=== PATIENT | male | born 1965 | race Caucasian/White ===

== ENCOUNTER 2021-08-16 21:58 | Inpatient (IN) | payer MEDICAID ==
[~2021-08-16] VITALS: Ht 167.6 cm; Wt 53.1 kg
--- NOTE | 2021-08-16 22:10 | NUR ---
[address] 78 [address] [employer] [address] C/O MULTIPLE FACE LACS ON FACE S/P SCRAPING BODY AND FACE ON STREET. GIVEN 5MG VERSED. PT ALERT AND ORIENTED X3. BROUGHT IN ON STRETCHER BUT IS AMBULATORY.
[2021-08-16 22:28] LABS: BASOPHILS % (AUTO) 0.3 % (0.0-2.0); EOSINOPHILS % (AUTO) 0.1 % (0.0-6.0); HEMATOCRIT 34 % (39-51); HEMOGLOBIN 11.2 g/dL (13.5-17.5); LYMPHOCYTES # (AUTO) 0.3 K/uL (0.8-4.8); LYMPHOCYTES % (AUTO) 4.3 % (20.0-44.0); MEAN CORPUSCULAR HGB CONC 33 g/dl (31.0-36.0); MEAN CORPUSCULAR VOLUME 93 fL (80-96); MONOCYTES # (AUTO) 0.3 K/uL (0.1-1.30); MONOCYTES % (AUTO) 3.9 % (2.0-12.0); NEUTROPHILS # (AUTO) 7.3 K/uL (1.8-8.9); NEUTROPHILS % (AUTO) 91.4 % (43.0-81.0); PLATELET COUNT (AUTO) 311 K/uL (150-450); RED BLOOD CELL COUNT(AUTO) 3.72 MIL/uL (4.5-6.0)
[2021-08-16 22:41] LABS: BILIRUBIN,URINE SMALL (NEGATIVE); COLOR,URINE YELLOW (YELLOW); LEUKOCYTE ESTERASE ,URINE Negative (NEGATIVE); NITRITE, URINE Negative (NEGATIVE); PH,URINE 5.5 (5.0-8.0); PROTEIN,URINE 100 mg/dl (NEGATIVE); UGLUCOSE Negative (NEGATIVE); UROBILINOGEN,URINE 0.2 EU/dL (0.2)
[2021-08-16 22:44] LABS: BACTERIA,URINE Rare /HPF (None Seen); SQUAMOUS EPITHELIAL CELL,UR Few /HPF (None Seen); WBC,URINE NONE SEEN /HPF (0-3)
[2021-08-16 22:45] LABS: ALANINE AMINOTRANSFERASE 34 U/L (12-78); ALBUMIN 3.4 g/dL (3.4-5.0); ALCOHOL, BLOOD < 3 mg/dL (0-0); ALKALINE PHOSPHATASE 101 U/L (46-116); ASPARTATE AMINOTRANSFERASE 44 U/L (15-37); BILIRUBIN,DIRECT 0.3 mg/dL (0.0-0.2); BILIRUBIN,TOTAL 1.1 mg/dL (0.2-1.0); CALCIUM, SERUM 8.8 mg/dL (8.5-10.1); CARBON DIOXIDE 19 mmol/L (21-32); CHLORIDE 104 mmol/L (98-107); CREATININE 2.5 mg/dL (0.6-1.3); GLUCOSE 91 mg/dL (74-106); POTASSIUM 3.7 mmol/L (3.5-5.1); SODIUM SERUM 140 mmol/L (136-145); TOTAL PROTEIN, SERUM 7.4 g/dL (6.4-8.2); UREA NITROGEN, BLOOD 35 mg/dL (7-18)
[2021-08-16 22:47] LABS: ACETAMINOPHEN < 2 ug/ml (10-30)
[2021-08-16] MEDS ORDERED: TDAP [DIPH/PERTUSSIS/TET] 0.5 ML VIAL IM ONE ×2 (23:00→23:24)
[2021-08-16] MEDS ORDERED: IV NS 0.9% 1,000 ML BAG IV ONE (23:30)
[2021-08-17] VITALS (7 sets, daily range): BP systolic 58–133; BP diastolic 32–66
--- NOTE | 2021-08-17 00:08 | NUR ---
BROUGHT TO CT
--- NOTE | 2021-08-17 00:08 | NUR ---
PT IN CT
--- NOTE | 2021-08-17 00:26 | NUR ---
CALLED JEANNE TO HAVE IMAGES READ
[2021-08-17] MEDS ORDERED: IV NS 0.9% 1,000 ML BAG IV ONE ×2 (01:00→11:00)
[2021-08-17] MEDS ORDERED: PIPERACILLIN /TAZOBACTAM 3.375 G in IV D5W 50 ML IV ONE (01:00)
[2021-08-17] MEDS ORDERED: PIPERACILLIN /TAZOBACTAM 3.375 G VIAL IV ONE ×2 (01:01→07:38)
--- NOTE | 2021-08-17 01:06 | NUR ---
CALLED DR CERON AND LEFT A MESSAGE.
--- NOTE | 2021-08-17 01:21 | NUR ---
called magdiel, will fax cts to [facility] to look over
--- NOTE | 2021-08-17 01:26 | NUR ---
sent clinicals to [facility] [phone]
--- NOTE | 2021-08-17 01:32 | NUR ---
called Dr Tran, left a message
--- NOTE | 2021-08-17 01:47 | NUR ---
presented the case to [facility]. dang fax clinicals to Luiz [phone]
--- NOTE | 2021-08-17 01:49 | NUR ---
speaking with [facility]
--- NOTE | 2021-08-17 01:50 | NUR ---
faxed clinicals to [facility]
--- NOTE | 2021-08-17 01:51 | NUR ---
[place] trauma dr denied pt
--- NOTE | 2021-08-17 01:55 | NUR ---
called dr garsia and left a message
--- NOTE | 2021-08-17 01:57 | NUR ---
called [facility]. They will call back
--- NOTE | 2021-08-17 02:01 | NUR ---
called [facility]. [phone] dr ledbetter
--- NOTE | 2021-08-17 02:03 | NUR ---
[facility] emmanuel denied case
--- NOTE | 2021-08-17 02:36 | NUR ---
called dr garsia. left a message
--- NOTE | 2021-08-17 02:58 | NUR ---
pt accepted to [facility] er by Dr Mari. call report to [phone]
--- NOTE | 2021-08-17 03:02 | NUR ---
[facility] has no [facility] trans[facility] available
--- NOTE | 2021-08-17 03:05 | NUR ---
[facility] has no als transports available
--- NOTE | 2021-08-17 03:08 | NUR ---
[facility] has no als transports available until after noon
--- NOTE | 2021-08-17 03:10 | NUR ---
[facility] has no als transports available
--- NOTE | 2021-08-17 03:14 | NUR ---
[facility] ambulance has no als transports available
--- NOTE | 2021-08-17 03:17 | NUR ---
[facility] has no als transports available. call back after [phone]
--- NOTE | 2021-08-17 03:18 | NUR ---
[facility] has no als transports available
--- NOTE | 2021-08-17 03:19 | NUR ---
REPORT GIVEN TO BRYCE GU AT [facility]. WILL CALL THEM BACK WITH ETA
--- NOTE | 2021-08-17 03:25 | NUR ---
[facility] unable to take pt's insurance
--- NOTE | 2021-08-17 03:32 | NUR ---
called [facility], no answer
--- NOTE | 2021-08-17 03:33 | NUR ---
Called [facility], no answer
--- NOTE | 2021-08-17 03:34 | NUR ---
Called [facility], no answer
--- NOTE | 2021-08-17 03:56 | NUR ---
[employer] HERE TO TAKE FINGERPRINTS
--- NOTE | 2021-08-17 04:00 | NUR ---
verbal order of 1L ns
--- NOTE | 2021-08-17 04:13 | NUR ---
per officer [id number], call [phone], thornton dipper clock and watch hands when pt is transferred.
[2021-08-17] MEDS ORDERED: IV NS 0.9% 1,000 ML IV ONE ×2 (04:30→07:00)
--- NOTE | 2021-08-17 04:31 | NUR ---
Officer Aleksander called to inform that when pt is transported, SO needs to call the area field person in order for officers to accompany the pt during transport
--- NOTE | 2021-08-17 06:14 | NUR ---
CALLED [facility] AGAIN, NO ALS TRANSPORATION AVAILABLE
--- NOTE | 2021-08-17 06:16 | NUR ---
CALLED [facility] NO ALS TRANSPORT AVAILABLE
--- NOTE | 2021-08-17 06:18 | NUR ---
CALLED [facility] FOR ALS TRANSPORT, NONE AVAILABLE
--- NOTE | 2021-08-17 06:18 | NUR ---
CALLED [facility] AGAIN, UNABLE TO TRANSFER DUE TO INSURANCE
--- NOTE | 2021-08-17 06:18 | NUR ---
Chu zepeda in ED - 08/17/21 at 0618 by CORINNE CALLED [facility] AGAIN, UNABLE TO TRANSFER DUE TO INSURANCE
[2021-08-17] MEDS ORDERED: ONDANSETRON HCL/PF - ER 4 MG/2 ML VIAL IV ONE (07:00)
[2021-08-17] MEDS ORDERED: MORPHINE SULFATE INJ 2 MG/ML DISP.SYRIN IV ONE (07:00)
[2021-08-17] MEDS ORDERED: OLANZAPINE 10 MG VIAL IM ONE ×4 (07:01→08:00)
[2021-08-17] MEDS: PIPERACILLIN /TAZOBACTAM 3.375 G in IV D5W 50 ML IV SCH ×4 (07:43→23:38)
[2021-08-17] MEDS ORDERED: ONDANSETRON HCL/PF 4 MG/2 ML VIAL ONE (07:51)
--- NOTE | 2021-08-17 07:53 | NUR ---
CALLED [facility] FOR ALS TRANSPORT BUT FULLY BOOKED.
[2021-08-17 08:05] LABS: CALCIUM, SERUM 7.9 mg/dL (8.5-10.1); CREATININE 2.2 mg/dL (0.6-1.3); POTASSIUM 4.1 mmol/L (3.5-5.1)
[2021-08-17] MEDS ORDERED: DEXTROSE 50%-WATER 50 ML DISP.SYRIN ONE ×2 (08:10→09:08)
--- NOTE | 2021-08-17 08:18 | NUR ---
SPOKE WITH GERRY FROM [facility] ALS TRANSPORT AVAILABLE AT 11 PM.
[2021-08-17] MEDS ORDERED: DEXTROSE 50%-WATER 50 ML DISP.SYRIN IV ONE ×2 (08:30→09:30)
--- NOTE | 2021-08-17 08:38 | NUR ---
CALLED [facility] BUT NO ALS AVAILABLE
--- NOTE | 2021-08-17 08:43 | NUR ---
[facility] HAS NO ALS SERVICE
--- NOTE | 2021-08-17 08:47 | NUR ---
called Dr. Tran for consult and speaking to Dr. Smith.
--- NOTE | 2021-08-17 09:04 | NUR ---
MOVE SHEET SUBMITTED AND CALLED FOR ICU BED.
[2021-08-17] MEDS ORDERED: IV D5/0.45 NACL 500 ML IV ONE (09:30)
[2021-08-17] MEDS ORDERED: IV D5/0.45 NACL 1,000 ML IV SCH (09:30)
--- NOTE | 2021-08-17 09:38 | NUR ---
Dr. Tran at bedside for eval.
--- NOTE | 2021-08-17 09:48 | NUR ---
DR. DE LUNA ACCEPTED PATIENT.
[2021-08-17] MEDS ORDERED: IV NS 0.9% 1,000 ML IV PRN (10:30)
[2021-08-17 10:33] LABS: BASOPHILS % (AUTO) 0.2 % (0.0-2.0); EOSINOPHILS % (AUTO) 0.3 % (0.0-6.0); HEMATOCRIT 36 % (39-51); HEMOGLOBIN 11.7 g/dL (13.5-17.5); LYMPHOCYTES # (AUTO) 0.2 K/uL (0.8-4.8); LYMPHOCYTES % (AUTO) 20.1 % (20.0-44.0); MEAN CORPUSCULAR HGB CONC 32 g/dl (31.0-36.0); MEAN CORPUSCULAR VOLUME 93 fL (80-96); MONOCYTES # (AUTO) 0.1 K/uL (0.1-1.30); MONOCYTES % (AUTO) 11.5 % (2.0-12.0); NEUTROPHILS # (AUTO) 0.8 K/uL (1.8-8.9); NEUTROPHILS % (AUTO) 67.9 % (43.0-81.0); PLATELET COUNT (AUTO) 258 K/uL (150-450); RED BLOOD CELL COUNT(AUTO) 3.88 MIL/uL (4.5-6.0)
[2021-08-17 10:34] LABS: WHITE BLOOD COUNT (AUTO) 1.2 K/uL (4.3-11.0)
--- NOTE | 2021-08-17 10:41 | NUR ---
CALLED FOR MIDLINE
[2021-08-17] MEDS ORDERED: ONDANSETRON HCL/PF 4 MG/2 ML VIAL IVP PRN (11:00)
[2021-08-17] MEDS ORDERED: ACETAMINOPHEN 325 MG TABLET PO PRN (11:00)
[2021-08-17] MEDS ORDERED: MORPHINE SULFATE INJ 2 MG/ML DISP.SYRIN IV PRN (11:00)
[2021-08-17] MEDS ORDERED: Z GUARD REMEDY 2 OZ OINT TP PRN (11:00)
[2021-08-17] MEDS ORDERED: MAGNESIUM HYDROXIDE 30 ML UDC PO PRN (11:00)
[2021-08-17] MEDS ORDERED: MAG HYDROX/AL HYDROX/SIMETH 30 ML UDC PO PRN (11:00)
[2021-08-17] MEDS ORDERED: HALOPERIDOL LACTATE INJ 5 MG/ML VIAL IM PRN (11:00)
[2021-08-17 12:39] LABS: BAND % (MANUAL) 4 % (0.0-5.0); LYMPHOCYTES % (MANUAL) 24 % (16-48); METAMYELOCYTES % 1 % (0-0); MONOCYTES % (MANUAL) 2 % (0-11.0); NEUTROPHILS % (MANUAL) 59 (42-76)
[2021-08-17] MEDS: VANCOMYCIN 1 GM in IV D5W 250 ML IV SCH (16:15)
--- NOTE | 2021-08-17 16:46 | NUR ---
report given to Charles WU for jacqueline
[2021-08-17] MEDS ORDERED: LORAZEPAM INJ 2 MG/ML VIAL ONE (16:50)
--- NOTE | 2021-08-17 17:17 | NUR ---
wheeled patient via gurney accompanied by RN and emt in no distress. RN assigned to patient at bedside to assume care.
[2021-08-17] MEDS: LORAZEPAM INJ 2 MG/ML VIAL IV PRN (17:20)
--- NOTE | 2021-08-17 17:25 | NUR ---
LINEN SUPERVISOR NOTES RECEIVED PT FROM ER VIA [facility]. ON 3L O2 VIA NC. NO SOB OR ANY DISTRESS. MULTIPLE ABRASIONS NOTED. PHOTOS TAKEN AND PLACED IN THE CHART. BARROS CATH IN PLACE DRAINING YELLOW COLORED URINE. IV ACCESS ON RAINER MIDLINE AND LFA #18 BOTH INTACT, PATENT AND FLUSHED. NO BELONGINGS. SAFETY MEASURES IN PLACE. BED LOCKED AND IN LOWEST POSITION WITH SIDE RAILS UP. WILL CONTINUE TO MONITOR.
[2021-08-17] MEDS: IV D5/0.45 NACL 1,000 ML IV SCH ×2 (18:33→21:13)
--- NOTE | 2021-08-17 19:10 | NUR ---
NAILHEAD OPERATOR NOTE RECEIVED PATIENT IN BED RESTING EYE CLOSED NOT VERBALLY RESPONSIVE, RESPONSIVE ON PAIN STIMULI,ON 5L OXYGEN VIA NASAL CANNULA,O2:97% IV SITE IS ON RIGHT UPPER ARM MIDLINE AND LEFT FOREARM INTACT PATENT ON IV HYDRATION D51/2NS 100CC/HR.BARROS CATHETER IN PLACE URINE DRAINING YELLOW BY GRAVITY,SAFETY MEASURE IMPLEMENT,SOFT BILATERAL RESTRAIN IN PLACE,ASSESS EVERY 2 HOURS FOR SKIN INTEGRITY AND CIRCULATION CONTINUE TO MONITOR.
--- NOTE | 2021-08-17 19:14 | NUR ---
BEAM MACHINE OPERATOR NOTES PT RESTING IN BED. NO SOB OR ANY DISTRESS. KEPT CLEAN AND COMFORTABLE. SAFETY MEASURES IN PLACE. BED LOCKED AND IN LOWEST POSITION WITH SIDE RAILS UP. ENDORSED TO NIGHT RN FOR MANUELITO.
[2021-08-17] MEDS ORDERED: PHENYLEPHRINE 10 MG/ML VIAL ONE (20:24)
[2021-08-17] MEDS ORDERED: PHENYLEPHRINE 50 MG in IV NS 0.9% 245 ML IV PRN (20:30)
[2021-08-17] MEDS ORDERED: IV NS 0.9% 500 ML IV ONE ×2 (20:30→21:00)
--- NOTE | 2021-08-17 21:10 | NUR ---
RN NOTE PATIENT'S BP DROPPING TO 50-[address] ZAMUDIO,RECEIVED ORDER FOR BOLUS 500 CC/HR NS TWO TIMES AND IF NOT EFFECT START NORSYNEPHRINE AND LEVOPHED NOTED AND CARRIED OUT.
[2021-08-17 21:12] LABS: ABG OXYGEN SATURATION 95.4 % (92.0-98.5); ABG PCO2 25.5 mmHg (35.0-45.0); ABG PH 7.438 (7.350-7.450); ABG PO2 84.8 mmHg (75.0-100.0); AaDO2 199.9 mmHg; COHb 0.3 % (0.5-1.5); MetHb 0.3 % (0.0-1.5); O2Hb 94.8 % (94.0-97.0); SITE, ABG Right Radial; VENT MODE, BG N/C 6LPM
[2021-08-17] MEDS ORDERED: NOREPINEPHRINE 4 MG/4 ML AMPUL IV ONE ×2 (21:24)
[2021-08-17] MEDS: NOREPINEPHRINE 32 MG in IV NS 0.9% 218 ML IV PRN (21:34)
[2021-08-18] VITALS (78 sets, daily range): BP systolic 75–116; BP diastolic 31–75
[2021-08-18] MEDS ORDERED: PHENYLEPHRINE 10 MG/ML VIAL ONE (01:13)
[2021-08-18] MEDS: PHENYLEPHRINE 100 MG in IV NS 0.9% 240 ML IV PRN ×3 (01:48→17:38)
--- NOTE | 2021-08-18 05:15 | NUR ---
RN NOTE MORPHINE 4MG GIVEN FOR PAIN CONTINUE TO MONITOR.
[2021-08-18] MEDS: PIPERACILLIN /TAZOBACTAM 3.375 G in IV D5W 50 ML IV SCH (05:27)
[2021-08-18 05:38] LABS: BASOPHILS % (AUTO) 0.1 % (0.0-2.0); EOSINOPHILS % (AUTO) 0.9 % (0.0-6.0); HEMATOCRIT 37 % (39-51); HEMOGLOBIN 11.9 g/dL (13.5-17.5); LYMPHOCYTES # (AUTO) 0.2 K/uL (0.8-4.8); LYMPHOCYTES % (AUTO) 11.9 % (20.0-44.0); MEAN CORPUSCULAR HGB CONC 33 g/dl (31.0-36.0); MEAN CORPUSCULAR VOLUME 93 fL (80-96); MONOCYTES # (AUTO) 0.1 K/uL (0.1-1.30); MONOCYTES % (AUTO) 6.6 % (2.0-12.0); NEUTROPHILS % (AUTO) 80.5 % (43.0-81.0); PLATELET COUNT (AUTO) 257 K/uL (150-450); RED BLOOD CELL COUNT(AUTO) 3.93 MIL/uL (4.5-6.0)
[2021-08-18 05:40] LABS: WHITE BLOOD COUNT (AUTO) 1.3 K/uL (4.3-11.0)
[2021-08-18] MEDS: IV D5/0.45 NACL 1,000 ML IV SCH (06:04)
[2021-08-18 06:05] LABS: CALCIUM, SERUM 6.2 mg/dL (8.5-10.1); CREATININE 3.3 mg/dL (0.6-1.3); MAGNESIUM 2.2 mg/dL (1.8-2.4); PHOSPHORUS 5.7 mg/dL (2.5-4.9); POTASSIUM 4.5 mmol/L (3.5-5.1)
--- NOTE | 2021-08-18 06:30 | NUR ---
TEXTILE DYER NOTE PATIENT REMAINS ON EYE CLOSED LETHARGIC RESPONSIVE TO PAIN STIMULI ON NEOSYNEPHRINE 3MCG/KG/MIN AND LEVOPHED 0.2 MCG/KG/MIN FOR LOW BP AND IV HYDRATION D51/2NS 100CC/HR IV SITE IS ON RIGHT UPPER ARM AND LEFT FOREARM INTACT PATENT,PATIENT IS NPO BARROS CATHETER IN PLACE URINE DRAINING DARK YELLOW BY GRAVITY,ALL DUE MEDS GIVEN MD ORDERED KEPT CLEAN AND DRY ALL THE TIME,KEPT COMFORTABLE,ENDORSE NEXT COMING SHIFT FOR CONTINUATION OF CARE.
[2021-08-18] MEDS ORDERED: IV D5/0.45 NACL 1,000 ML IV PRN (06:38)
--- NOTE | 2021-08-18 07:05 | NUR ---
SEXTON HELPER NOTE RECEIVED PATIENT ON BED ,RESTING EYE CLOSED, MUMBLING AT TO PAINFUL STIMULI, ON 2L OXYGEN VIA NASAL CANNULA,O2 SAT WNL, RIGHT UPPER ARM MIDLINE AND LEFT FOREARM INTACT PATENT ON IV HYDRATION D51/2NS 100CC/HR. ON ANDREW AT 3MCG/KG/MIN , LEVO AT .2 MCG/KG/MIN RUNNING , BARROS CATHETER IN PLACE URINE DRAINING YELLOW BY GRAVITY,SAFETY MEASURE IMPLEMENT,SOFT BILATERAL RESTRAIN IN PLACE FOR PT SAFETY , ASSESS EVERY 2 HOURS FOR SKIN INTEGRITY , SR UP x3, CALL LIGHT WITHIN EASY REACH, WILL CONTINUE TO MONITOR.
[2021-08-18] MEDS: VANCOMYCIN 1 GM in IV D5W 250 ML IV SCH (08:07)
[2021-08-18 08:47] LABS: BAND % (MANUAL) 21 % (0.0-5.0); LYMPHOCYTES % (MANUAL) 10 % (16-48); METAMYELOCYTES % 5 % (0-0); MONOCYTES % (MANUAL) 6 % (0-11.0); MYELOCYTES % 13 % (0-0); NEUTROPHILS % (MANUAL) 45 (42-76)
[2021-08-18 09:35] LABS: ABG BASE EXCESS -11.7 mmol/L; ABG OXYGEN SATURATION 89.9 % (92.0-98.5); ABG PCO2 22.2 mmHg (35.0-45.0); ABG PH 7.349 (7.350-7.450); ABG PO2 65.8 mmHg (75.0-100.0); COHb 0.8 % (0.5-1.5); MetHb 0.1 % (0.0-1.5); O2Hb 89.1 % (94.0-97.0); VENT MODE, BG 3L NC
[2021-08-18] MEDS ORDERED: PROPOFOL 100 ML IV PRN (10:00)
--- NOTE | 2021-08-18 10:00 | NUR ---
RN NOTES DR BIGGS NOTIFED REGARDING ABG RESULTS, ORDER RECEIVED TO INTUBATE PT . NURSING JOB COACHING NOTIFED .
--- NOTE | 2021-08-18 10:19 | NUR ---
RN NOTES PT INTUBATED BY DR DAVISON , TOLERAING VENT SETTING WELL , CONTINUE TO MONITOR.
--- NOTE | 2021-08-18 10:20 | NUR ---
RT PATIENT ORALLY INTUBATED BY DR DAVISON WITH A 7.5 ETT SECURED AT 23CM. BILAT BREATH SOUNDS HEARD, POSITIVE CO2 COLOR CHANGE NOTED. BILAT CHEST RISE NOTED. PLACED ON [facility] VENT WITH ORDERED SETTINGS. ALARMS CHECKED + AUDIBLE. AMBU BAG AT HOB Addendum: 08/18/21 at 1040 by EDWARD AGUILERA RT Amended: Links added.
[2021-08-18 11:29] LABS: ABG BASE EXCESS -14.5 mmol/L; ABG OXYGEN SATURATION 96.6 % (92.0-98.5); ABG PCO2 42.4 mmHg (35.0-45.0); ABG PH 7.136 (7.350-7.450); ABG PO2 113.9 mmHg (75.0-100.0); AaDO2 556.7 mmHg; COHb 0.6 % (0.5-1.5); MetHb 0.1 % (0.0-1.5); O2Hb 95.9 % (94.0-97.0); SITE, ABG Right Radial
[2021-08-18] MEDS: PIPERACILLIN /TAZOBACTAM 2.25 G in IV D5W 50 ML IV SCH ×2 (12:06→23:19)
[2021-08-18] MEDS ORDERED: ETOMIDATE 2 MG/ML VIAL IV ONE (12:32)
[2021-08-18] MEDS ORDERED: ROCURONIUM BROMIDE 50 MG/5 ML IV ONE (12:32)
[2021-08-18] MEDS: Sodium Bicarbonate 150 MEQ in IV D5W 1,000 ML IV PRN ×2 (12:35→23:54)
[2021-08-18] MEDS: NOREPINEPHRINE 32 MG in IV NS 0.9% 218 ML IV PRN (14:09)
[2021-08-18 15:11] LABS: BILIRUBIN,URINE SMALL (NEGATIVE); COLOR,URINE YELLOW (YELLOW); LEUKOCYTE ESTERASE ,URINE NEGATIVE (NEGATIVE); NITRITE, URINE NEGATIVE (NEGATIVE); PH,URINE 6.5 (5.0-8.0); PROTEIN,URINE 100 mg/dl (NEGATIVE); UGLUCOSE NEGATIVE (NEGATIVE); UROBILINOGEN,URINE 0.2 EU/dL (0.2)
[2021-08-18 15:16] LABS: RBC,URINE 21-50 /HPF (0-2)
[2021-08-18 15:17] LABS: BACTERIA,URINE 1+ /HPF (None Seen); FINE GRANULAR CASTS,URINE Few /LPF (None Seen); SQUAMOUS EPITHELIAL CELL,UR 0-2 /HPF (None Seen); URINE AMORPHOUS URATE Many /HPF (None Seen); WBC,URINE 0-2 /HPF (0-3)
[2021-08-18 15:30] LABS: EOSINOPHIL,URINE None Seen
--- NOTE | 2021-08-18 16:00 | NUR ---
RN NOTES DR WEI NOTIFIED REGARDING TROPONIN 0.515 . CONTINUE TO MONITOR.
[2021-08-18 16:03] LABS: CREATININE, URINE 119.1 MG/DL (30.0-125.0); URINE TOTAL PROTEIN 399.3 mg/dL (0-11.9)
[2021-08-18] MEDS: LORAZEPAM INJ 2 MG/ML VIAL IV PRN (16:19)
--- NOTE | 2021-08-18 16:30 | NUR ---
RN NOTES BP STILL LOW , DR DE LUNA NOTIFIED , NEW ORDER RECEIVED FOR 3TH PRESSOR .
[2021-08-18] MEDS: VASOPRESSIN INJ 40 UNIT in IV NS 0.9% 38 ML IV PRN (18:04)
--- NOTE | 2021-08-18 18:34 | NUR ---
RN NOTES PT REMAINS INTUBATED AND SEDATED, ON THREE PRESSORS , LEVO AND ANDREW MAX DOSE, VESO AT .01 AT THIS TIME, ON BICARB DRIP AT 100CC/HR , PT IS DNR , ON TELE ST HR IN 120'S , IV SITES CLEAN, DRY AND INTACT, SR UP x3, CALL LIGHT WITHIN EASY REACH , BED LOCKED AND IN LOWEST POSITION, WILL ENDORSE TO EXCHANGE OPERATOR NURSE FOR CONTINUITY OF CARE .
--- NOTE | 2021-08-18 19:30 | NUR ---
ASSUMED CARE OF PATIENT UNTIL ENERGY RATER RN AVAILABLE TO TAKE OVER PATIENT. PT SEDATED ON PROPOFOL. LEVOPHED, ANDREW-SYNEPHRINE AND VASOPRESSIN INFUSING PER MD ORDERS. BICARB GTT INFUSING PER MD ORDERS. MINIMAL URINE OUTPUT, NEPHROLOGY ON THE CASE. PT WAS MADE A DNR TODAY. WILL ENDORSE TO ENERGY RATER RN.
[2021-08-18] MEDS ORDERED: SODIUM BICARBONATE SYR 50 MEQ/50 ML DISP.SYRIN ONE (22:45)
[2021-08-19] VITALS (24 sets, daily range): BP systolic 37–101; BP diastolic 19–69
--- NOTE | 2021-08-19 | NUR ---
agricultural mechanic. pt is very unstable, anuric, hob elevated. no gag reflex, no cough reflex. hob elevated. npo. levo, bigg, vaso max out. unable to reposition q2h.
[2021-08-19] MEDS ORDERED: VASOPRESSIN INJ 20 UNIT/ML VIAL ONE (00:13)
[2021-08-19] MEDS: NOREPINEPHRINE 32 MG in IV NS 0.9% 218 ML IV PRN (00:24)
[2021-08-19] MEDS: VASOPRESSIN INJ 40 UNIT in IV NS 0.9% 38 ML IV PRN (02:09)
--- NOTE | 2021-08-19 02:26 | NUR ---
cvicu rn.annabel, bigg max out. blood pressure is 45/28.will monitor vitals
[2021-08-19] MEDS: PHENYLEPHRINE 100 MG in IV NS 0.9% 240 ML IV PRN (03:23)
[2021-08-19] MEDS: PIPERACILLIN /TAZOBACTAM 2.25 G in IV D5W 50 ML IV SCH (04:00)
--- NOTE | 2021-08-19 04:37 | NUR ---
director agricultural services. oral care done. pt is unstable. agonal breathing.iv lt upper arm mid line. levo 3mcg/kg/min, bigg 3 mcg/kg/mint , vaso 0.04u/h.bicarb drip 100ml/h. fc patent. anuric. no gag reflex,will continue to monitor vitals.
--- NOTE | 2021-08-19 07:30 | NUR ---
VET ASSISTANT OPENING NOTE PT SEMIFOWLER'S ORALLY INTUBATED ON VENT SETTING PER MD ORDER, TOLERATING WELL, SPO2 100%. PT VERY UNSTABLE, CURRENTLY MAXED OUT ON ANDREW, LEVO, AND VASOPRESSIN, BP 50/45, PT NSR TO SINUS TACHY HR 99 - 108. PT RUNNING D5W BICARB @ 100 ML/HR. PT RAINER PICC, MANDA MIDLINE AND LFA #18 SITES FLUSHED AND ARE PATENT, NO SIGNS OF INFECTION/INFILTRATION. PT MULTIPLE FACIAL, BUE, BLE, CHEST BILAT FEET ABRASIONS NOTED. PT ANURIC, 20cc MICHELINE URINE WITH SEDIMENT NOTED IN BARROS CATH, DRAINING TO GRAVITY. ALL PT SAFETY PRECAUTIONS IN PLACE, WILL CONT TO MONITOR
--- NOTE | 2021-08-19 08:00 | NUR ---
RN NOTE PER DR DE LUNA NO NEED FOR AM LABS PT CONDITION IS DETERIORATING. PT VERY UNSTABLE AT THIS MOMENT. CURRENT TEMP OF 107 F, COOLING MEASURES IN PLACE
[2021-08-19 08:22] LABS: ABG BASE EXCESS -14.9 mmol/L; ABG OXYGEN SATURATION 24.3 % (92.0-98.5); ABG PCO2 48.2 mmHg (35.0-45.0); ABG PH 7.092 (7.350-7.450); ABG PO2 23.6 mmHg (75.0-100.0); COHb 0.2 % (0.5-1.5); MetHb 1.2 % (0.0-1.5); SITE, ABG Right Radial; VENT MODE, BG AC18 500 70% 0
--- NOTE | 2021-08-19 09:07 | NUR ---
RN NOTES PT IS DNR , ASYSTOLE ON MONITOR ,NO PALPABLE PULSES NOTED, PUPILS FIXED AND NON REACTIVE , PRONOUNCED AT 09:07 BY TWO RNS
--- NOTE | 2021-08-19 10:00 | NUR ---
RN NOTE: TICKET SELLER CALLED TICKET SELLER TO REPORT AT 0915, WAS ON HOLD FOR 45 MIN. CALLED TICKET SELLER FROM A DIFFERENT LINE AND SPOKE WITH WELLNESS SPECIALIST TELLING THEM I AM CALLING TO REPORT A AND HAVE BEEN ON HOLD FOR 45MIN, HE STATED THEY ARE "BACKED UP" AT THE MOMENT AND TO LEAVE THE HOSPITAL PHONE NUMBER AND MY NAME AND THAT THEY WOULD CALL BACK.
--- NOTE | 2021-08-19 10:25 | NUR ---
RN NOTES STILL ON HOLD FOR FISH HATCHERY SUPERINTENDENT TO CALL BACK .
--- NOTE | 2021-08-19 11:00 | NUR ---
RN NOTE STILL ON HOLD WITH REGULATORY AUDITOR
--- NOTE | 2021-08-19 11:30 | NUR ---
RN NOTES POST MORTEM CARE DONE, STILL NO CALL BACK FROM [facility] .
--- NOTE | 2021-08-19 12:12 | NUR ---
RN NOTES BODY RELEASED TO [facility]. STILL NO CALL BACK FROM [facility].
--- NOTE | 2021-08-19 13:00 | NUR ---
RN NOTE STILL NO ANSWER FORM PRODUCT GRADER. HAVE TRIED CALLING 3 SEPARATE TIMES. HAVE BEEN ON HOLD NOW (THE THIRD TIME) FOR OVER AN HOUR NOW
--- NOTE | 2021-08-19 15:00 | NUR ---
RN NOTE STILL ON HOLD WITH VISITOR USE ASSISTANT. CURRENTLY HAVE 2 SEPARATE LINES ON HOLD
--- NOTE | 2021-08-19 16:30 | NUR ---
RN NOTE STILL ON HOLD WITH TIRE INSTALLER ON 2 SEPARATE PHONES. TRIED CALLING 5 SEPARATE TIMES TODAY. SPOKE WITH GARMENT PARTS CUTTER MACHINE ONCE, HE SAID THEY WERE BACKED UP. WE WILL CONT TO HOLD ON BOTH LINES
--- NOTE | 2021-08-19 17:00 | NUR ---
RN NOTE UNABLE TO CONTACT LEARNING AND DEVELOPMENT ADMINISTRATOR TODAY, NURSING WASTE REDUCTION COORDINATOR AWARE
== END 2021-08-19 18:44 | DRG 812 ==
LOC: EDBD 22:02 → ER 22:02 → TRANSITION 08-17 12:42 → ICU 08-17 17:10
PROVIDERS: ADMIT Internal Medicine; ATTEND Internal Medicine
PROC: 0BH17EZ Insertion of Endotracheal Airway into Trachea, Via Natural or Artificial Opening (ICD-10-PCS; 2021-08-17)
PROC: 5A1945Z Respiratory Ventilation, 24-96 Consecutive Hours (ICD-10-PCS; principal; 2021-08-18)
DX: T43.621A Poisoning by amphetamines, accidental (unintentional), initial encounter (principal); N17.0 Acute kidney failure with tubular necrosis; J96.01 Acute respiratory failure with hypoxia; R65.21 Severe sepsis with septic shock; K63.1 Perforation of intestine (nontraumatic); G92.9 Unspecified toxic encephalopathy; A41.9 Sepsis, unspecified organism; I95.9 Hypotension, unspecified; T18.9XXA Foreign body of alimentary tract, part unspecified, initial encounter; I21.A1 Myocardial infarction type 2; F19.10 Other psychoactive substance abuse, uncomplicated; X58.XXXA Exposure to other specified factors, initial encounter; Y92.410 Unspecified street and highway as the place of occurrence of the external cause; D72.819 Decreased white blood cell count, unspecified; E16.2 Hypoglycemia, unspecified; E86.0 Dehydration; E86.1 Hypovolemia; E87.0 Hyperosmolality and hypernatremia; E87.4 Mixed disorder of acid-base balance; F29 Unspecified psychosis not due to a substance or known physiological condition; Z66 Do not resuscitate; Z59.00 Homelessness unspecified; N18.9 Chronic kidney disease, unspecified; M62.82 Rhabdomyolysis; F15.90 Other stimulant use, unspecified, uncomplicated; S01.81XA Laceration without foreign body of other part of head, initial encounter; Y92.89 Other specified places as the place of occurrence of the external cause
CPT/HCPCS: 31720; 36410; 36415; 36569; 36600; 70450-TC; 70486-TC; 71045-TC; 72125-TC; 73030-TC; 74018; 76770-TC; 80048-TC; 80076-TC; 81001; 82550-TC; 82553; 82570-TC; 82803-TC; 82962-TC; 83605-TC; 83735-TC; 84100-TC; 84155-TC; 84300-TC; 84484-TC; 85025-TC; 87040-TC; 87081-TC; 87806; 90715; 93307-TC; 94002-TC; 94003-TC; A6403; C9803; G0378; G0480; J2060; J2270; J2370; J2405; J2543; J3370; J3490; J7030; J7040; J7050; J7060; J7070; U0003